=== PATIENT | female | born 1950 | race Caucasian/White ===

== ENCOUNTER 2020-01-03 08:55 | Outpatient (CLI) | payer MEDICARE, SELFPAY ==
--- NOTE | 2020-01-03 08:57 | MM_ITS ---
WS: [id number] BILATERAL DIGITAL SCREENING MAMMOGRAPHY WITH CAD CLINICAL INFORMATION: SCREENING HISTORY: Screening mammogram. No current complaints. COMPARISON: TECHNIQUE: Bilateral CC and MLO views. FINDINGS: The breasts are composed of heterogeneous fibroglandular density tissue, which can limit the detectio n of small underlying mass lesions. No suspicious mass, asymmetry, calcifications, or architectural d istortion. Punctate and lucent centered calcifications. Vascular calcification. No evidence of malign elyse. MM/[id number] IMPRESSION: BI-RADS: 2-Benign FOLLOW UP: 1 Year Follow-up Recommend return to annual screening mammography.
== END 2020-01-03 08:56 | disposition home or self-care (01) ==
LOC: RADSHAW 08:56
PROVIDERS: Family Provider Nurse Practitioner Family; PCP Nurse Practitioner Family; Visit Provider Family Medicine
DX: Z12.31 Encounter for screening mammogram for malignant neoplasm of breast (principal)
CPT/HCPCS: 77067

== ENCOUNTER 2020-01-08 08:19 | Day surgery (SDC) | payer MEDICARE, SELFPAY ==
[2020-01-05 12:35] VITALS: BMI 29.9
--- NOTE | 2020-01-08 08:48 | ANES.PREANE2 ---
Pre-Anesthetic Assessment Pre-Anesthetic Assessment: Height/Weight: Height 1.5 m Weight 67.132 kg Proposed Procedure: Operation Date: 01/08/20 10:00 Proposed Procedures p Colonoscopy G0104 R19.5(Not Applicable) - Rony Austin MD Social: Social History: Alcohol and No tobacco Exam: Pre-Anes Outpt Exam: alert, oriented x 3, clear to auscultation bilaterally and regular rate & rhythm Airway: Submandibular: WNL Cervical ROM: WNL MP: 1 Dentition: Other (teeth ok) History/ROS: No significant history except as noted Pulmonary: Pulmonary: None reported CV/HEM: CV/HEM: HTN : : None reported Hepatic: Hepatic: None reported GI: GI: GERD (occ) Comments: GI bleed Metabolic: Metabolic: Hyperlipidemia Musc/skel: Musc/skel: OA/DJD Neuropsych: Neuropsych: None reported Anesthetic Plan: ASA status: 2 Anesthesia: Anesthesia Evaluation and MAC Risk of > 500 ml blood loss (7ml/kg in children): No PFSH Anesthesia PFSH: Social History Smoking and tobacco status: former smoker Quit status (tobacco): has quit using tobacco Year quit tobacco: 1979 Alcohol intake: current Alcohol intake frequency: 0-2 Drinks per Day Alcohol type: beer Marital status: History of recent travel: No Current gender identity: Female Data Anesthesia Cardiac Studies: No Data to Display
--- NOTE | 2020-01-08 09:15 | P.HPUD_ITS ---
H&P update H&P Update: DATE OF SURGERY/PROCEDURE: 01/08/20 DATE H&P PERFORMED: 11/10 H&P UPDATE INFORMATION: H&P completed within last 30 days, No changes to prior documentation and H&P is in [facility] E[facility] on date indicated PLANNED PROCEDURE: Operation Date: 01/08/20 10:00 Proposed Procedures p Colonoscopy G0104 R19.5(Not Applicable) - Rony Austin MD Full H&P Perinent History: Social History: Social History Smoking and tobacco status: former smoker Quit status (tobacco): has quit using tobacco Year quit tobacco: 1979 Alcohol intake: current Alcohol intake frequency: 0-2 Drinks per Day Alcohol type: beer Marital status: History of recent travel: No Current gender identity: Female
[2020-01-08] MEDS: sodium chloride 0.9% 1,000 ML 30 ML (09:27)
[2020-01-08 09:55] VITALS: BP 159/74; PULSE 85; RESP 18; TEMP 36.3; O2SAT 98
[2020-01-08 11:14] VITALS: BP 160/105; PULSE 94; RESP 18; TEMP 36.6; O2SAT 100
[2020-01-08 11:25] VITALS: BP 130/79; PULSE 85; RESP 18; O2SAT 97
[2020-01-08 11:33] VITALS: BP 145/79; PULSE 75; RESP 18; O2SAT 99
== END 2020-01-08 11:35 | disposition home or self-care (01) ==
PROVIDERS: Family Provider Nurse Practitioner Family; PCP Nurse Practitioner Family; Visit Provider Internal Medicine
PROC: 0DJD8ZZ Inspection of Lower Intestinal Tract, Via Natural or Artificial Opening Endoscopic (ICD-10-PCS; CPT 45378; principal; 2020-01-08 10:00)
DX: Z12.11 Encounter for screening for malignant neoplasm of colon (principal); Z79.82 Long term (current) use of aspirin; Z87.891 Personal history of nicotine dependence; K57.30 Diverticulosis of large intestine without perforation or abscess without bleeding; I10 Essential (primary) hypertension; K21.9 Gastro-esophageal reflux disease without esophagitis; E78.5 Hyperlipidemia, unspecified; M19.90 Unspecified osteoarthritis, unspecified site
CPT/HCPCS: 12345; 45378; J2704; J7030